=== PATIENT | female | born 1935 | race Caucasian/White ===

== ENCOUNTER 2021-08-30 10:12 | Emergency (ER) | payer MEDICARE, BC ==
[~2021-08-30 10:12] MED LIST: ZITHROMAX250 MG PO
[2021-08-30 11:45] LABS: HEMOGLOBIN 13.3 gm/dl (12.3-15.3); RED BLOOD COUNT 4.46 M/UL (4.00-5.10); WHITE BLOOD COUNT 4.8 K/UL (4.5-11.0)
[2021-08-30 12:09] LABS: BUN/CREATININE RATIO 17 (0-10)
[2021-08-30] MEDS ORDERED: PREDNISONE10 MG PO (12:24)
== END 2021-08-30 13:18 | disposition home or self-care (01) ==
LOC: ER1 10:12
PROVIDERS: Nurse Practitioner
DX: M54.42 Lumbago with sciatica, left side (principal); I10 Essential (primary) hypertension; Z79.1 Long term (current) use of non-steroidal anti-inflammatories (NSAID); E78.5 Hyperlipidemia, unspecified; Z79.01 Long term (current) use of anticoagulants; Z20.822 Contact with and (suspected) exposure to COVID-19
CPT/HCPCS: 72131; 80053; 81001; 85025; 96374; 99284; J1100; U0002

== ENCOUNTER → 2021-11-12 | Outpatient (CLI) | payer MEDICARE, BC ==
[~2021-11-12] MED LIST changes: +PREDNISONE10 MG PO
== END ==
LOC: CT 08:49
DX: M51.36 Other intervertebral disc degeneration, lumbar region (principal); N83.8 Other noninflammatory disorders of ovary, fallopian tube and broad ligament; M47.816 Spondylosis without myelopathy or radiculopathy, lumbar region; M43.16 Spondylolisthesis, lumbar region
CPT/HCPCS: 36415; 72148; 72194; 82565; Q9967

== ENCOUNTER 2022-05-03 12:51 | Emergency (ER) | payer MEDICARE, BC ==
[2022-05-03 13:54] LABS: HEMOGLOBIN 11.6 gm/dl (12.3-15.3); RED BLOOD COUNT 4.3 M/UL (4.00-5.10)
[2022-05-03 14:19] LABS: BUN/CREATININE RATIO 34 (0-10)
== END 2022-05-03 16:45 | disposition home or self-care (01) ==
LOC: ER1 12:51
PROVIDERS: Physician Assistant Medical
DX: M79.604 Pain in right leg (principal); M79.89 Other specified soft tissue disorders; I10 Essential (primary) hypertension; W18.30XA Fall on same level, unspecified, initial encounter
CPT/HCPCS: 70450; 73564; 73590; 73630; 73700; 80053; 84550; 85025; 99284

== ENCOUNTER → 2022-05-18 | Outpatient (CLI) | payer MEDICARE, BC | LOC: KOH-I 16:00 | DX: M79.661 Pain in right lower leg (principal); M79.89 Other specified soft tissue disorders; I82.411 Acute embolism and thrombosis of right femoral vein; I82.431 Acute embolism and thrombosis of right popliteal vein; I82.4Z1 Acute embolism and thrombosis of unspecified deep veins of right distal lower extremity | CPT/HCPCS: 93971 ==

== ENCOUNTER 2022-05-22 16:30 | Inpatient (IN) | payer MEDICARE, BC ==
[~2022-05-22] VITALS: Ht 160 cm; Wt 59.0 kg
[2022-05-22 18:40] LABS: HEMOGLOBIN 11.4 gm/dl (12.3-15.3); RED BLOOD COUNT 4.27 M/UL (4.00-5.10); WHITE BLOOD COUNT 6.7 K/UL (4.5-11.0)
[2022-05-22 19:10] LABS: BUN/CREATININE RATIO 40 (0-10)
[2022-05-23 06:26] LABS: RED BLOOD COUNT 4.13 M/UL (4.00-5.10); WHITE BLOOD COUNT 6.3 K/UL (4.5-11.0)
[2022-05-23 07:18] LABS: BUN/CREATININE RATIO 25 (0-10)
[2022-05-23] MEDS ORDERED: AMLODIPINE BESY10 MG PO (10:02)
[2022-05-23] MEDS ORDERED: ATORVASTATIN CA40 MG PO (10:03)
[2022-05-23] MEDS ORDERED: BENAZEPRIL HCL40 MG PO (10:03)
[2022-05-23] MEDS ORDERED: CARVEDILOL12.5 MG PO (10:04)
[2022-05-23] MEDS ORDERED: MELOXICAM7.5 MG PO (10:04)
[2022-05-23] MEDS ORDERED: DULOXETINE HCL60 MG PO (10:04)
[2022-05-23] MEDS ORDERED: GABAPENTIN300 MG PO (11:05)
[2022-05-23] MEDS ORDERED: TRAMADOL HCL50 MG PO (11:05)
[2022-05-24 01:24] LABS: HEMOGLOBIN 9.8 gm/dl (12.3-15.3); RED BLOOD COUNT 3.7 M/UL (4.00-5.10); WHITE BLOOD COUNT 6.7 K/UL (4.5-11.0)
[2022-05-24 01:52] LABS: BUN/CREATININE RATIO 29 (0-10)
[2022-05-25 09:34] LABS: HEMOGLOBIN 10.1 gm/dl (12.3-15.3); RED BLOOD COUNT 3.81 M/UL (4.00-5.10); WHITE BLOOD COUNT 6.1 K/UL (4.5-11.0)
--- NOTE | 2022-05-25 10:17 | NUR ---
ROOM AIR SATURATION 85%.
[2022-05-26] MEDS ORDERED: FUROSEMIDE10 MG/1 M1 PO (09:34)
[2022-05-26] MEDS ORDERED: CARVEDILOL12.5 MG PO (09:34)
[2022-05-26] MEDS ORDERED: ELIQUIS5 MG PO (09:37)
== END 2022-05-26 14:35 | disposition home or self-care (01) | DRG 175 ==
LOC: ER1 16:30 → CDU 23:39 → PROG CARE 23:39
PROVIDERS: Internal Medicine; Nurse Practitioner; ADMIT Internal Medicine
PROC: B24BZZZ Ultrasonography of Heart with Aorta (ICD-10-PCS; principal; 2022-05-23)
DX: I26.94 Multiple subsegmental thrombotic pulmonary emboli without acute cor pulmonale (principal); I50.33 Acute on chronic diastolic (congestive) heart failure; J96.01 Acute respiratory failure with hypoxia; Z20.822 Contact with and (suspected) exposure to COVID-19; I11.0 Hypertensive heart disease with heart failure; I08.3 Combined rheumatic disorders of mitral, aortic and tricuspid valves; M51.36 Other intervertebral disc degeneration, lumbar region; K44.9 Diaphragmatic hernia without obstruction or gangrene; E78.5 Hyperlipidemia, unspecified; G89.29 Other chronic pain; I48.91 Unspecified atrial fibrillation; Z86.718 Personal history of other venous thrombosis and embolism; Z79.01 Long term (current) use of anticoagulants; Z82.49 Family history of ischemic heart disease and other diseases of the circulatory system
CPT/HCPCS: ECHO; 0240U; 36415; 36600; 71045; 80048; 80053; 81001; 82550; 82553; 82803; 83735; 83880; 84439; 84443; 84484; 85025; 85027; 85610; 85730; 93005; 93306; 96374; 99285; J1644; J1940; Q9967